=== PATIENT | female | born 1985 | race Caucasian/White ===

== ENCOUNTER 2017-12-07 02:20 | Emergency (ER) | payer OTHER ==
[2017-12-07] MEDS ORDERED: LORazepam 1 MG TABLET PO ONE (02:40)
[2017-12-07] MEDS ORDERED: LORazepam 0.5 MG TABLET ONE (02:49)
--- NOTE | 2017-12-07 02:51 | PDOC ---
History of Present Illness - General Chief Complaint: Psychiatric Stated Complaint: ANXIETY Time Seen by Provider: 12/07/17 02:41 History Source: Patient Exam Limitations: No Limitations - History of Present Illness Initial Comments: 12/07/17 02:45 Patient is a 32-year-old female with history of anxiety with complaints of anxiety since this morning. States she has been very stressed out for the past few weeks. She has of anxiety and was on Lexapro, but has not taken it for the past 2 years. States she was fine and functioning well until this episode today. States her symptoms are typical of an anxiety attack. She has dry mouth, palpitations, intermittent dizziness, chest tightness. She denies any suicidal or homicidal ideation. She states she is sitting still in contact with her psychiatrist and it would be easy to get an appointment. LMP now PMD: Dr. Tyler PMHX: as above PSHX: neg ALL: NKDA GENERAL/CONSTITUTIONAL: [No fever or chills. No weakness. No weight change.] HEAD, EYES, EARS, NOSE AND THROAT: [No change in vision. No ear pain or discharge. No sore throat.] CARDIOVASCULAR: [No chest pain or shortness of breath.] RESPIRATORY: [No cough, wheezing, or hemoptysis.] GASTROINTESTINAL: [No nausea, vomiting, diarrhea or constipation. No rectal bleeding.] GENITOURINARY: [No dysuria, frequency, or change in urination.] MUSCULOSKELETAL: [No joint or muscle swelling or pain. No neck or back pain.] SKIN AND BREASTS: [No rash or easy bruising.] NEUROLOGIC: [No headache, vertigo, loss of consciousness, or loss of sensation.] PSYCHIATRIC: [No depression, (+) anxiety.] ENDOCRINE: [No increased thirst. No abnormal weight change.] HEMATOLOGIC/LYMPHATIC: [No anemia, easy bleeding, or history of blood clots.] ALLERGIC/IMMUNOLOGIC: [No hives or skin allergy. No latex allergy.] GENERAL: [The patient is awake, alert, and fully oriented, in mild distress.] HEAD: [Normal with no signs of trauma.] EYES: [Pupils equal, round and reactive to light, extraocular movements intact, sclera anicteric, conjunctiva clear.] ENT: [Ears normal, nares patent, oropharynx clear without exudates. Moist mucous membranes.] NECK: [Normal range of motion, supple without lymphadenopathy, JVD, or masses.] LUNGS: [Breath sounds equal, clear to auscultation bilaterally. No wheezes, and no crackles.] HEART: [Regular rate and rhythm, normal S1 and S2 without murmur, rub.] ABDOMEN: [Soft, nontender, normoactive bowel sounds. No guarding, no rebound. No masses.] EXTREMITIES: [Normal range of motion, no edema. No clubbing or cyanosis. No cords, erythema, or tenderness.] NEUROLOGICAL: [Cranial nerves II through XII grossly intact. Normal speech, normal gait.] PSYCH: anxious mood, normal anxious, (+) wring hands.] SKIN: [Warm, Dry, normal turgor, no rashes or lesions noted.] Past History - Past Medical History Allergies/Adverse Reactions: Allergies Allergy/AdvReac Type Severity Reaction Status Date / Time No Known Allergies Allergy Verified 12/07/17 02:32 Home Medications: Ambulatory Orders NK [No Known Home Medication] 12/07/17 COPD: No Psychiatric Problems: Yes (DEPRESSION) Thyroid Disease: Yes (HYPO) - Surgical History Abdominal Surgery: Yes (HERNIA REPAIR) - Suicide/Smoking/Psychosocial Hx Smoking Status: No Smoking History: Never smoked Have you smoked in the past 12 months: No Number of Cigarettes Smoked Daily: 0 Hx Alcohol Use: No Drug/Substance Use Hx: No Substance Use Type: None *Physical Exam - Vital Signs Last Vital Signs Temp Pulse Resp BP Pulse Ox 89 18 117/80 100 12/07/17 02:32 12/07/17 02:32 12/07/17 02:32 12/07/17 02:32 ED Treatment Course - LABORATORY CBC & Chemistry Diagram: 12/07/17 04:30 12/07/17 04:30 Medical Decision Making - Medical Decision Making 12/07/17 02:45 Patient is a 32-year-old female with history of anxiety with complaints of anxiety since this morning which is typical for her stimulated by her stressful events. will give Ativan 1mg po re-eval 12/07/17 04:32 Patient reevaluated and still symptoms. She still complains of chest pressure, and feeling tense. Will get labs, EKG Benadryl 50 mg by mouth. Consults psych in the a.m. 12/07/17 05:23 EKG sr rate 89, NAD, prolong QT 498, (-) ST-T wave changes No lab abnormalities 12/07/17 06:03 Patient now awake and she is feeling better. States he feels well enough to go home. I will give patient copies of all her labs and EKG and instruct her to follow up with her psychiatrist today. I discussed the physical exam findings, ancillary test results and final diagnoses with the patient. I answered all of the patient's questions. The patient was satisfied with the care received and felt comfortable with the discharge plan and treatment plan. The Patient agrees to follow up with the primary care physician within 24-72 hours. *DC/Admit/Observation/Transfer Diagnosis at time of Disposition: Anxiety - Discharge Dispostion Disposition: HOME Condition at time of disposition: Stable - Referrals Referrals: Jeanette Josue MD [Primary Care Provider] - - Patient Instructions Printed Discharge Instructions: DI for Anxiety -- Adult Additional Instructions: Your Discharge Instructions: You must call primary care physician within 24 hours to arrange follow-up. Return to the Emergency Department with any new, persistent or worsening symptoms, for fever, chills, SOB, dizziness or any other concerning changes that may occur. You must follow up with your psychiatrist today. We have provided you copy of the EKG on your labs for evaluation by the psychiatrist. - Post Discharge Activity Forms/Work/School Notes: Back to Work
[2017-12-07 02:52] VITALS: BP 117/80; PULSE 89; BMI 26.4
[2017-12-07] MEDS ORDERED: diphenhydrAMINE HCL 25 MG CAPSULE (FP) PO ONE ×2 (04:17→04:25)
[2017-12-07 04:39] LABS: BASO % 0.4 % (0-2.0); EOS % 0.4 % (0-4.5); HEMATOCRIT 37.8 % (32.4-45.2); HEMOGLOBIN 12.8 GM/dL (10.7-15.3); LYMPH % 24.6 % (8-40); MCH 27.8 pg (25.7-33.7); MCHC 33.8 g/dl (32.0-36.0); MEAN CELL VOLUME 82.1 fl (80-96); MEAN PLT VOLUME 8.5 fl (7.5-11.1); MONO % 5.7 % (3.8-10.2); NEUT % 68.9 % (42.8-82.8); PLATELET COUNT 210 K/MM3 (134-434); RDW 12.7 % (11.6-15.6); WHITE BLOOD COUNT 5.2 K/mm3 (4.0-10.0)
[2017-12-07 05:04] LABS: ALBUMIN 4.1 g/dl (3.4-5.0); ALK PHOS 52 U/L (45-117); ANION GAP 8 (8-16); BILIRUBIN,TOTAL 0.4 mg/dL (0.2-1.0); BLOOD UREA NITROGEN 9 mg/dL (7-18); CALCIUM 8.9 mg/dL (8.5-10.1); CHLORIDE 107 mmol/L (98-107); CO2 26 mmol/L (21-32); CREATININE 0.9 mg/dL (0.55-1.02); GLUCOSE,RANDOM 106 mg/dL (74-106); POTASSIUM 4.1 mmol/L (3.5-5.1); SGOT/AST 14 U/L (15-37); SGPT/ALT 16 U/L (12-78); SODIUM 141 mmol/L (136-145); TOT PROT 7.4 g/dl (6.4-8.2)
--- NOTE | 2017-12-07 12:11 | EKG ---
Test Reason : Blood Pressure : / mmHG Vent. Rate : 089 BPM Atrial Rate : 089 BPM P-R Int : 150 ms QRS Dur : 074 ms QT Int : 410 ms P-R-T Axes : 070 065 063 degrees QTc Int : 498 ms NORMAL SINUS RHYTHM WITH SINUS ARRHYTHMIA PROLONGED QT ABNORMAL ECG WHEN COMPARED WITH ECG OF 20-SEP-2008 10:47, NO SIGNIFICANT CHANGE WAS FOUND Confirmed by CASSIDY TOTH MD ([id number]) on 12/07/2017 12:11:19 PM Referred By: Confirmed By:CASSIDY TOTH MD
== END 2017-12-07 06:17 | disposition home or self-care (01) ==
LOC: JER 02:20
DX: E03.9 Hypothyroidism, unspecified (principal); F41.8 Other specified anxiety disorders
CPT/HCPCS: 36415; 80053; 84443; 84703; 85025; 93005; 93010; 99283-25

== ENCOUNTER 2019-01-10 08:54 | Emergency (ER) | payer OTHER | END 2019-01-10 11:16 | disposition home or self-care (01) | LOC: JER 08:54 ==

== ENCOUNTER 2024-04-03 18:08 | Emergency (ER) | payer OTHER ==
[2024-04-03 18:31] VITALS: BP 110/73; PULSE 88; RESP 17; TEMP 98.1; BMI 29.8
== END 2024-04-03 21:12 | disposition home or self-care (01) ==
LOC: JERFT 18:08
DX: M79.10 Myalgia, unspecified site (principal); R11.0 Nausea; N76.6 Ulceration of vulva; B34.9 Viral infection, unspecified
CPT/HCPCS: 36415; 87255; 99283-25